=== PATIENT | male | born 1950 | race Caucasian/White ===

== ENCOUNTER 2020-06-04 14:27 | Outpatient (REF) | payer MEDICARE, SELFPAY ==
[2020-06-04 21:34] LABS: Calculated LDL 142 mg/dL (<100); Cholesterol 213 mg/dL (<200); HDL Cholesterol 49 mg/dL (40-60); Triglyceride 110 mg/dL (<150)
[2020-06-09 15:58] LABS: PSA, Screening 1.5 ng/mL (0-6.5)
== END 2020-06-04 14:47 ==
LOC: NCHCN 14:27
PROVIDERS: PCP Internal Medicine; Visit Provider Internal Medicine
DX: E78.70 Disorder of bile acid and cholesterol metabolism, unspecified (principal); Z00.00 Encounter for general adult medical examination without abnormal findings; Z12.5 Encounter for screening for malignant neoplasm of prostate
CPT/HCPCS: 80061; 84153

== ENCOUNTER 2021-06-08 07:57 | Outpatient (REF) | payer MEDICARE, SELFPAY ==
[2021-06-08 12:43] LABS: BUN 21 mg/dL (7-18); Calcium 8.5 mg/dL (8.5-10.1); Calculated LDL 125 mg/dL (<100); Chloride 106 mmol/L (98-107); Cholesterol 194 mg/dL (<200); Glucose 101 mg/dL (74-106); HDL Cholesterol 57 mg/dL (40-60); Potassium 3.8 mmol/L (3.5-5.1); Sodium 144 mmol/L (136-145); Triglyceride 64 mg/dL (<150)
== END 2021-06-08 07:58 | disposition home or self-care (01) ==
LOC: NCHCN 07:57
PROVIDERS: PCP Internal Medicine; Visit Provider Internal Medicine
DX: Z00.00 Encounter for general adult medical examination without abnormal findings (principal); N40.0 Benign prostatic hyperplasia without lower urinary tract symptoms
CPT/HCPCS: 80048; 80061

== ENCOUNTER 2023-08-31 11:27 | Outpatient (REF) | payer MEDICARE, SELFPAY ==
--- OUTSIDE RECORDS SUMMARY | 2023-08-31 11:32 | XMS_ITS | CCD ---
Author Name Unknown Address [address] [place] [address] [phone] Organization Unknown Address [address] [place] [address] [phone] Care Team Providers Care Mud Trucker Name Role Phone EMORY EVANS Attending Physician [phone] ALEJANDRO WHATLEY Er Physician [phone] RUPINDER WRIGHT (Secondary) Physician [phone] KEYONNA Triplett Registered Nurse [phone] RICK Spring Registered Nurse [phone] Vital Signs Vital Sign Value Unit Date/Time Recent/Initial ? BMI (Body Mass Index) 22.6 kg/m^2 12/08/2021 16: 58 Initial VS Weight Measured 140 lbs 12/08/2021 16:58 Ini tial VS Height 66 in 12/08/2021 16:58 Initial VS BSA (Body Surface Area) 1.72 m^2 12/08/2021 1 6:58 Initial VS BP Systolic 143 mmHg 12/08/2021 16:58 Initial VS BP Diastolic 79 mmHg 12/08/2021 16:58 Initia l VS Respiratory Rate 18 bpm 12/08/2021 16:58 In itial VS Heart Rate 105 bpm 12/08/2021 16:58 Initial VS O2 % BldC Oximetry 98 % 12/08/2021 16:58 Initial VS Body Temperature 37.9 degrees 12/08/2021 16:58 In itial VS BP Systolic 107 mmHg 12/09/2021 07:54 Most Re cent VS BP Diastolic 70 mmHg 12/09/2021 07:54 Most R ecent VS O2 % BldC Oximetry 96 % 12/09/2021 07:54 Most Recent VS Body Temperature 38 degrees 12/09/2021 07:[address] Recent VS Respiratory Rate 0 bpm 12/09/2021 09:[address] Recent VS Heart Rate 0 bpm 12/09/2021 09:40 Most Rec ent VS Allergies Allergy Code Allergy Type Reaction Status No Known Allergies {Clinical monitoring unavailable} 0 Drug allergy Active Procedures Unknown or Not Available. History of Immunizations Unknown or Not Available. Problems Problem Code Start Date Resolved Date Status Pneumonia 109985902 Active Fever [id number] Active Glaucoma 37893443 12/08/2021 Resolved Osteoarthritis 866420766 12/08/2021 Resolved Results BASIC METABOLIC PANEL (BMP) - Collect Date/Time: 12/09/2021 06:30 Test Name Code Test Result Test Units Test Ref Rang e GLUCOSE 2345-7 132 mg/dL L=70 H=116 BUN 3094-0 26 mg/dL L=6 H=25 CREATININE 2160-0 1.25 mg/dL L=0.67 H=1.17 SODIUM SERUM 2951-2 137 mmol/L L=136 H=145 POTASSIUM SERUM 2823-3 4.2 mmol/L L=3.4 H=5 .2 CHLORIDE SERUM 2075-0 103 mmol/L L=96 H=110 CARBON DIOXIDE (CO2) 2028-9 25 mmol/L L=22 H=34 ANION GAP 41118-4 8.6 mmol/L CALCIUM SERUM 13057-0 8.1 mg/dL L=8.2 H=10. 2 AGE 71 years eGFR (non-Afr.Amer.) 03018-0 57 mL/min eGFR (Afr-Burmese) 52109-2 69 mL/min BNP (PRO-B NATRIURETIC PEPTI DE) - Collect Date/Time: 12/08/2021 18:55 Test Name Code Test Result Test Units Test Ref Rang e NT-proBNP 73032-3 462.0 pg/mL L=0.0 H=125 COMPREHENSIVE METABOLIC PANE L (CMP) - Collect Date/Time: 12/08/2021 18:55 Test Name Code Test Result Test Units Test Ref Rang e GLUCOSE 2345-7 113 mg/dL L=70 H=116 BUN 3094-0 20 mg/dL L=6 H=25 CREATININE 2160-0 1.03 mg/dL L=0.67 H=1.17 SODIUM SERUM 2951-2 139 mmol/L L=136 H=145 POTASSIUM SERUM 2823-3 3.3 mmol/L L=3.4 H=5 .2 CHLORIDE SERUM 2075-0 104 mmol/L L=96 H=110 CARBON DIOXIDE (CO2) 2028-9 26 mmol/L L=22 H=34 ANION GAP 54968-8 8.8 mmol/L CALCIUM SERUM 73220-9 8.5 mg/dL L=8.2 H=10. 2 BILIRUBIN TOTAL 1975-2 0.7 mg/dL L=0.0 H=1 .3 ALK. PHOS. 6768-6 65 U/L L=46 H=116 SGOT (AST) 1920-8 21 U/L L=15 H=37 SGPT (ALT) 1742-6 20 U/L L=12 H=78 TOTAL PROTEIN 2885-2 6.0 gm/dL L=6.0 H=8.0 ALBUMIN 1751-7 3.3 gm/dL L=3.4 H=5.0 AGE 71 years eGFR (non-Afr.Amer.) 53483-8 71 mL/min eGFR (Afr-Burmese) 81073-0 86 mL/min TROPONIN HIGH SENSITIVITY* - Collect Date/Time: 12/08/2021 18:55 Test Name Code Test Result Test Units Test Ref Rang e TROPONIN HS 16.4 pg/mL L=0.0 H=60.4 Specimen seq. Random N/A CBC W/ DIFFERENTIAL* - [facility] ct Date/Time: 12/09/2021 06:30 Test Name Code Test Result Test Units Test Ref Rang e WBC 6690-2 4.93 th/cmm L=5.00 H=10.00 NEUT % 80.5 % L=40.0 H=80.0 LYMPH % 13.2 % L=10.0 H=50.0 MONO % 32630-1 5.9 % L=2.0 H=12.0 EOS % 0.0 % L=0.0 H=8.0 BASO % 0.2 % L=0.0 H=3.0 IG % 2514-8 0.2 % L=0.0 H=1.1 NRBC % 27573-8 0.0 % L=0.0 H=0.0 NEUT abs count 751-8 4.0 th/cmm L=1.6 H=8. 4 LYMPH abs count 731-0 0.7 th/cmm L=1.5 H=4 .0 MONO abs count 742-7 0.3 th/cmm L=0.2 H=1. 0 EOS abs count 711-2 0.0 th/cmm L=0.0 H=0.5 BASO abs count 704-7 0.0 th/cmm L=0.0 H=0. 2 IG abs count 60397-7 0.0 th/cmm L=0.0 H=0.1 NRBC abs count 11076-9 0.0 mil/cmm L=0.0 H=0. 0 RBC 789-8 4.23 mil/cmm L=4.30 H=6.20 HEMOGLOBIN 718-7 13.8 gm/dL L=13.0 H=17.0 HEMATOCRIT 4544-3 39 % L=45 H=52 MCV 787-2 93 fL L=82 H=92 MCH 785-6 32.6 pg L=27.0 H=31.0 MCHC 786-4 35.0 % L=32.0 H=36.0 RDW-SD 788-0 44.4 fL L=39.0 H=49.0 PLATELET COUNT 777-3 133 th/cmm L=150 H=45 0 CBC W/ DIFFERENTIAL* - [facility] Date/Time: 12/08/2021 18:55 Test Name Code Test Result Test Units Test Ref Rang e WBC 6690-2 7.93 th/cmm L=5.00 H=10.00 NEUT % 87.3 % L=40.0 H=80.0 LYMPH % 4.4 % L=10.0 H=50.0 MONO % 39203-1 7.6 % L=2.0 H=12.0 EOS % 0.0 % L=0.0 H=8.0 BASO % 0.1 % L=0.0 H=3.0 IG % 2514-8 0.6 % L=0.0 H=1.1 NRBC % 70736-4 0.0 % L=0.0 H=0.0 NEUT abs count 751-8 6.9 th/cmm L=1.6 H=8. 4 LYMPH abs count 731-0 0.4 th/cmm L=1.5 H=4 .0 MONO abs count 742-7 0.6 th/cmm L=0.2 H=1. 0 EOS abs count 711-2 0.0 th/cmm L=0.0 H=0.5 BASO abs count 704-7 0.0 th/cmm L=0.0 H=0. 2 IG abs count 86589-5 0.1 th/cmm L=0.0 H=0.1 NRBC abs count 52072-3 0.0 mil/cmm L=0.0 H=0. 0 RBC 789-8 4.33 mil/cmm L=4.30 H=6.20 HEMOGLOBIN 718-7 13.9 gm/dL L=13.0 H=17.0 HEMATOCRIT 4544-3 40 % L=45 H=52 MCV 787-2 92 fL L=82 H=92 MCH 785-6 32.1 pg L=27.0 H=31.0 MCHC 786-4 34.9 % L=32.0 H=36.0 RDW-SD 788-0 42.5 fL L=39.0 H=49.0 PLATELET COUNT 777-3 132 th/cmm L=150 H=45 0 DANTE COVID FLU RSV GENEXPE RT - Collect Date/Time: 12/08/2021 18:55 Test Name Code Test Result Test Units Test Ref Rang e COVID 17628-0 NEGATIVE N/A Normal: Negati ve INFLUENZA A DNA 20723-4 NEGATIVE N/A Normal: N egative INFLUENZA B DNA 58050-8 NEGATIVE N/A Normal: N egative RSV DNA 44394-2 NEGATIVE N/A Normal: Negati ve URINALYSIS WITH REFLEX CULT IF POSITIVE* - Collect Date/Time: 12/08/2021 21:11 Test Name Code Test Result Test Units Test Ref Rang e COLLECTION MODE: 07592-9 CLEAN CATCH N/A Color 5778-6 YELLOW N/A yellow Appearance 5767-9 CLEAR N/A clear Glucose urine 70802-6 NEGATIVE N/A negative mg /dl Bilirubin 5770-3 NEGATIVE N/A negative Ketones 2514-8 NEGATIVE N/A negative mg/dl Spec gravity 5811-5 1.010 N/A 1.003 - 1.03 0 pH urine 2756-5 6.0 N/A 5.0 - 7.0 Protein 50010-4 NEGATIVE N/A negative mg/dl Urobilinogen 50810-7 0.2 N/A <or= 1 EU/dl Nitrite. 5802-4 NEGATIVE N/A negative Blood 5794-3 TRACE-IN N/A negative Leukocytes. NEGATIVE N/A negative MICROSCOPIC INDICATED N/A WBCs. 36547-3 none N/A 0-5 / hpf RBCs 25208-2 0-5 N/A 0-5 / hpf Epith cells 47938-2 none N/A 0-5 / hpf Crystals none N/A none Bacteria minimal N/A none Mucus 8247-9 none N/A none Casts 47576-2 none N/A none /lpf ORDER VENOUS BLOOD GAS* - Co llect Date/Time: 12/08/2021 18:55 Test Name Code Test Result Test Units Test Ref Rang e pH (venous) 2746-6 7.49 L=7.31 H=7.41 PCO2 (venous) 2703-7 33.0 mm Hg L=41.0 H=51 .0 HCO3 1960-4 25 mmol/L L=22 H=26 TCO2 (venous) 3533-7 26 mmol/L L=22 H=28 BASE EXCESS (venous) 3097-3 2 mmol/L L=-2 H=3 Specimen type: VENOUS N/A Active Medications Medications Administered During Visit Medication Dose Units Frequency Route Date/Time of Last Dose ACETAMINOPHEN INJ IVPB: 1000MG/100ML 1000 MG X1 12/08/2021 19:1 0 CefTRIAXone IVPB: 1GM/50ML 1 GM X1 12/08/2021 22:52 AZITHROMYCIN IVPB: 500MG/250ML 1 EA DAILY 12/08/2021 23:43 ACETAMINOPHEN TABLET: 325MG 975 MG PRN Q6H PO 12/09/2021 09:18 SODIUM CHLORIDE 0.9% FLUSH 1 0ML SYRINGE 2 ML Q8H IVP 12/09/2021 06:4 7 CefTRIAXone IVPB: 1GM/50ML 1 EA Q24H 12/09/2021 05:12 AZITHROMYCIN IVPB: 500MG/250ML 1 EA DAILY 12/09/2021 06:47 Encounters Encounter Diagnosis Diagnosis Code Start Date Pneumonia, unspecified organism J189 12/08/2021 Social History Smoking Status Code Start Date End Date Former smoker [id number] Patient Decision Aids Unknown or Not Available. Discharge Instructions You were admitted to [facility] on 12/08/2021 22:24 with a principal diagnosis of Pneumonia, unspecified organism You had the following tests done:BASIC METABOLIC PANEL (BMP)CBC W/ DIFFERENTIAL*URINALYSIS WITH REFLEX CULT IF POSITIVE*BNP (PRO-B NATRIURETIC PEPTIDE)CBC W/ DIFFERENTIAL*COMPREHENSIVE METABOLIC PANEL (CMP)[facility] COVID FLU RSV GENEXPERTORDER VENOUS BLOOD GAS*TROPONIN HIGH SENSITIVITY* You were discharged from [facility] on 12/09/2021 13:05 Should you have any questions prior to discharge, please contact a member of your healthcare team. If you have left the hospital and have any questions, please contact your primary care physician. Chief Complaint and Reason For Visit Chief Complaint Date of Onset PNEUMONIA 12/08/2021 Function Status Unknown or Not Available. Plan of Care Unknown or Not Available. Referral/Transition of Care Unknown or Not Available.
--- OUTSIDE RECORDS SUMMARY | 2023-08-31 11:32 | XMS_ITS | CCD ---
Author Name Unknown Address [address] [place] [address] [phone] Organization Unknown Address [address] [place] [address] [phone] Care Team Providers Care Gasoline Service Attendant Name Role Phone LASHAY VAZQUEZ Rayne Attending Physician [phone] Vital Signs Unknown or Not Available. Allergies Allergy Code Allergy Type Reaction Status No Known Allergies {Clinical monitoring unavailable} 0 Drug allergy Active Procedures Unknown or Not Available. History of Immunizations Unknown or Not Available. Problems Problem Code Start Date Resolved Date Status Pneumonia 391036544 Active Fever 384346406 Active Results Unknown or Not Available. Active Medications Medication Code Dose Units Frequency Route Modificatio n Start Date/Time Cefpodoxime Proxetil 200MG Oral Tablet 474267 1 TABLET TWICE A DAY ORAL 12/09/2021 12:20 Prescription Detail TAKE 1 TABLET ORAL TWICE A DAY Azithromycin 250MG Oral Tablet 405812 1 TABLET DAILY ORAL 12/09/2021 12:19 Prescription Detail TAKE 1 TABLET ORAL DAILY guaiFENesin DM 10MG-100MG/5ML Oral Syrup 130446 10-20 mL NEEDED EVERY 4 HOURS ORAL 12/09/2021 12:18 Prescription Detail TAKE 10-20 mL ORAL NEEDED EVERY 4 ZBIGNIEW RS Fish Oil 1000MG Oral Capsule, Liquid Filled [id number] MILLIGRAMS DAILY ORAL 09/08 15:21 Prescription Detail TAKE 1000 MILLIGRAMS ORAL DAILY Multivitamin Oral Tablet 17516654367 1 EACH DAILY ORAL 2015 15:21 Prescription Detail TAKE 1 EACH ORAL DAILY Travatan Z 0.004% Ophthalmic Solution 300175 1 EACH BEDTIME OPTHALMIC 09/08/2015 15:21 Prescription Detail 1 EACH OPTHALMIC BEDTIME Medications Administered During Visit Unknown or Not Available. Encounters Encounter Diagnosis Diagnosis Code Start Date Acute bronchitis, unspecified J209 Social History Smoking Status Code Start Date End Date Former smoker [id number] Patient Decision Aids Unknown or Not Available. Discharge Instructions You were admitted to [facility] on 09/18/2022 09:32 with a principal diagnosis of Acute bronchitis, unspecified You were discharged from [facility] on 09/18/2022 09:32 Should you have any questions prior to discharge, please contact a member of your healthcare team. If you have left the hospital and have any questions, please contact your primary care physician. Chief Complaint and Reason For Visit Unknown or Not Available. Function Status Unknown or Not Available. Plan of Care Unknown or Not Available. Referral/Transition of Care Unknown or Not Available.
[2023-08-31 15:21] LABS: Calculated LDL 128 mg/dL (<100); Cholesterol 199 mg/dL (<200); Glucose 105 mg/dL (74-106); HDL Cholesterol 58 mg/dL (40-60); Triglyceride 67 mg/dL (<150)
== END 2023-08-31 11:28 | disposition home or self-care (01) ==
LOC: NCHCN 11:27
PROVIDERS: PCP Internal Medicine; Visit Provider Internal Medicine
DX: Z13.1 Encounter for screening for diabetes mellitus (principal); Z13.220 Encounter for screening for lipoid disorders
CPT/HCPCS: 80061; 82947

== ENCOUNTER 2024-09-11 08:34 | Outpatient (REF) | payer MEDICARE, SELFPAY ==
[2024-09-11 14:45] LABS: Anion Gap 4.6 mmol/L (3-11); BUN 16 mg/dL (7-18); CO2 30.4 mmol/L (21.0-32.0); Calculated LDL 143 mg/dL (<100); Chloride 105 mmol/L (98-107); Cholesterol 217 mg/dL (<200); Glucose 114 mg/dL (74-106); HDL Cholesterol 60 mg/dL (40-60); Potassium 3.9 mmol/L (3.5-5.1); Sodium 140 mmol/L (136-145); Triglyceride 74 mg/dL (<150)
== END 2024-09-11 08:35 | disposition home or self-care (01) ==
LOC: NCHCN 08:34
PROVIDERS: PCP Internal Medicine; Visit Provider Internal Medicine
DX: E78.5 Hyperlipidemia, unspecified (principal); Z00.00 Encounter for general adult medical examination without abnormal findings
CPT/HCPCS: 80048; 80061

== ENCOUNTER 2024-09-17 14:12 | Outpatient (REF) | payer MEDICARE, SELFPAY ==
[2024-09-17 21:54] LABS: TSH 2.74 uIU/mL (0.36-3.74); Vitamin B12 611 pg/mL (193-986)
== END 2024-09-17 14:13 | disposition home or self-care (01) ==
LOC: NCHCN 14:12
PROVIDERS: PCP Internal Medicine; Visit Provider Internal Medicine
DX: R41.3 Other amnesia (principal)
CPT/HCPCS: 82607; 84443